=== PATIENT | male | born 1960 | race African-American/Black ===

== ENCOUNTER → 2021-04-03 12:35 | Outpatient (CLI) | payer MEDICARE, OTHER, SELFPAY ==
[2021-04-03 14:26] LABS: COVID19 -Nasal RAPID Negative (Negative)
== END ==
PROVIDERS: Family Provider Emergency Medicine Emergency Medical Services; PCP Emergency Medicine Emergency Medical Services; Visit Provider Nurse Practitioner Family
DX: Z20.822 Contact with and (suspected) exposure to COVID-19 (principal)
CPT/HCPCS: 87635

== ENCOUNTER 2023-07-09 14:45 | Emergency (ER) | payer MEDICARE, OTHER, SELFPAY ==
[2023-07-09] VITALS (8 sets, daily range): BP systolic 136–169; BP diastolic 66–87; PULSE 47–66; RESP 16; TEMP 36.3; O2SAT 94–100; BMI 34.2
--- NOTE | 2023-07-09 15:15 | ED.GENADULT ---
HPI - General Adult General Chief complaint: Extremity Problem,Nontraumatic Stated complaint: Right lower leg and foot Time Seen by Provider: 07/09/23 15:15 Source: patient Mode of arrival: Ambulatory History of Present Illness HPI narrative: 63-year-old [facility] with a history of hypertension, depression, peripheral neuropathy who presents with right leg edema. Apparently he had some type of wound to the anterior portion of the right leg in 1997 that has never completely healed and he tends to injure the right anterior cosme and have more infections. He did just that a couple of weeks ago has recently completed a course of antibiotics and is concerned that the leg is still swollen. He has not having any fevers, redness, warmth, skin discoloration. There is a small 1 cm nicely healing wound that does not appear to be infected and is not draining. The right leg is slightly more swollen than the left. He has multiple complaints all of which are very similar to his chronic peripheral neuropathy issues. They talked [facility] on [facility] who suggested he come in for further evaluation. Related Data Home Medications Medication Instructions Recorded Confirmed Sildenafil Citrate (Viagra) 100 mg PO PRN ##0 09/21/08 04/03/21 amlodipine 2.5 mg tablet 2.5 mg PO DAILY 12/06/20 04/03/21 fluoxetine 20 mg capsule (Prozac) 60 mg PO DAILY 12/06/20 04/03/21 gabapentin 300 mg capsule 600 mg PO DAILY 12/06/20 04/03/21 Previous Rx's Medication Instructions Recorded methocarbamol 500 mg tablet See Rx Instructions PO Q6-8H PRN 12/06/20 muscle spasm #30 tabs Allergies Allergy/AdvReac Type Severity Reaction Status Date / Time Sulfa (Sulfonamide Allergy Unknown Verified 07/09/23 14:50 Antibiotics) [SULFA (SULFONAMIDE ANTIBIOTICS)] Review of Systems Review of Systems Narrative: Pertinent positive and negative findings as per HPI Patient History Medical History (Updated 07/09/23 @ 16:49 by Angela Keene MD) Hypertension Social History Smoking Status: Never smoker Smoking Status: Never smoker Substance Use Type: marijuana Exam Initial Vital Signs Initial Vital Signs: Vital Signs Temperature 97.4 F L 07/09/23 14:50 Pulse Rate 59 L 05/20/24 14:50 Respiratory Rate 16 07/09/23 14:50 Blood Pressure 140/66 07/09/23 14:50 Pulse Oximetry 99 07/09/23 14:50 Oxygen Delivery Method Room Air 07/09/23 14:50 General: Alert appropriate in no acute distress Respiratory: Able to speak in full sentences, no obvious respiratory distress Skin: No obvious rashes, warm and dry Neurologic: Grossly intact no obvious asymmetries or abnormalities Psych: appropriate insight and affect, cooperative Extremity: Right lower extremity is slightly more swollen than the left. No warmth or erythema to suggest infection. Has a keloid on the anterior cosme right side. No inguinal adenopathy Course Orders Ordered: ED Orders 07/09/23 16:00 US periph venous low extrem rt Stat Vital Signs Vital signs: Vital Signs - 8 hr 07/09/23 14:50 07/09/23 14:59 07/09/23 14:59 Temperature 97.4 F L Pulse Rate 59 L 66 Respiratory Rate 16 Blood Pressure 140/66 148/71 H Pulse Oximetry 99 99 Oxygen Delivery Method Room Air 07/09/23 15:00 Temperature Pulse Rate 61 Respiratory Rate Blood Pressure Pulse Oximetry 99 Oxygen Delivery Method Room Air Medical Decision Making MDM Narrative Medical decision making narrative: CC: Right leg more swollen in the left after completing antibiotics for right lower extremity cellulitis Complicating co-morbidities: Chronic lower extremity edema, right leg with chronic wound healing issues, peripheral neuropathy, hypertension Data collected from: patient Social determinants of health that may influence the patients condition: [facility] Differential considered: Chronic edema, DVT, doubt underlying infection given benign clinical exam Exam documented above, pertinent findings include: Right lower extremity slightly more swollen. Keloid on the right cosme. Small nicely healing noninfected wound just lateral to the keloid. No inguinal adenopathy complains of tenderness in the calf and along the medial aspect of the calf Imaging studies independently reviewed: Preliminary port for vascular ultrasound indicates no evidence of DVT Discussion: 63-year-old gentleman concerned that his right leg is still swollen after completing a course of antibiotics. DVT is ruled out. Clinically there was no sign of continued infection, deeper abscess or other concerns. I suspect he simply has some disrupted lymphatic flow on the right leg. We talked about using compression socks as well as elevation to help with comfort. Questions were answered he is safe for discharge Discharge Plan Departure Patient Disposition: Home Clinical Impression: Edema of right lower extremity Instructions: DI for Peripheral Edema-Unilateral Activity Restrictions/Additional Instructions: Thank you for coming in today There was no evidence of a blood clot in your right leg. On clinical exam, there is no excessive warmth, redness, drainage or fluctuance to suggest infection. I believe the antibiotics you have completed did exactly what they were supposed to do. Sometimes when there is some underlying injury to the leg itself either with venous flow or lymphatic flow, it will take longer for the swelling to go down. Keeping the foot elevated helps, I would strongly recommend compression socks, the compression socks for runners are frequently much more comfortable, compressive and stylish ;) If you find that you are getting worse or develop any new symptoms, please feel free to return to the emergency department for further evaluation. Prescriptions: No Action amlodipine 2.5 mg tablet 2.5 mg PO DAILY fluoxetine [Prozac] 20 mg capsule 60 mg PO DAILY gabapentin 300 mg capsule 600 mg PO DAILY methocarbamol 500 mg tablet See Rx Instructions PO Q6-8H PRN (Reason: muscle spasm) Qty: 30 0RF Rx Instructions: 1-2 tablets PO every 6-8 hours PRN; Sildenafil Citrate (Viagra) 100 mg PO PRN Qty: 0 Referrals: Ismael Burnette MD [Primary Care Provider] - Stand Alone Forms: Patient Portal/API
--- NOTE | 2023-07-09 16:00 | DI.US.S_ITS ---
PROCEDURE: US PERIPH VENOUS LOW EXTREM RT INDICATIONS: asymetric edema TECHNIQUE: Real-time imaging, as well as color and pulse Doppler interrogation, were performed of the lower extremity deep veins from the inguinal ligament to the popliteal fossa, with documentation of the visualized calf veins. COMPARISON: None. FINDINGS: The common femoral, femoral, popliteal, and the visualized calf veins are normally compressible, and free of intraluminal thrombus. Color and pulse Doppler demonstrate normal phasic intraluminal flow. There is normal augmentation response to distal compression maneuver. IMPRESSION: No findings of lower extremity deep venous thrombosis. Dictated by: Akilah Diamond M.D. on 07/09/2023 at 17:16 Approved by: Akilah Diamond M.D. on 07/09/2023 at 17:16
== END 2023-07-09 16:51 | disposition home or self-care (01) ==
PROVIDERS: Emergency Provider Emergency Medicine; Family Provider Emergency Medicine Emergency Medical Services; PCP Emergency Medicine Emergency Medical Services
DX: R60.0 Localized edema (principal)
CPT/HCPCS: 93971; 99281; 99282

== ENCOUNTER 2023-11-06 11:58 | Emergency (ER) | payer MEDICARE, OTHER, SELFPAY ==
[2023-11-06 12:00] VITALS: BP 127/75; PULSE 78; RESP 16; TEMP 37.1; O2SAT 99; BMI 35.6
--- NOTE | 2023-11-06 12:13 | DI.RAD.S_ITS ---
PROCEDURE: XR KNEE LT 3V INDICATIONS: pain/popping TECHNIQUE: 3 views of the knee were acquired. COMPARISON: None. 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 Anterior-superior and anterior inferior enthesophyte calcifications at the attachments of the quadriceps tendon and patellar ligament Mild degenerative changes of the left knee in the medial lateral and patellofemoral compartments. No radiographic evidence of acute fracture, dislocation, knee joint effusion or high attenuation soft tissue foreign body. If symptoms persist or worsen, MRI could be performed. Dictated by: Monroe Parada M.D. on 11/06/2023 at 12:47 Approved by: Monroe Parada M.D. on 11/06/2023 at 13:05
--- NOTE | 2023-11-06 13:42 | DI.US.S_ITS ---
PROCEDURE: US PERIP VENOUS LOW EXTREM RT INDICATIONS: Lower leg swelling, erythema TECHNIQUE: Real-time imaging, as well as color and pulse Doppler interrogation, were performed of the lower extremity deep veins from the inguinal ligament to the popliteal fossa, with documentation of the visualized calf veins. COMPARISON: [facility], , [facility] VENOUS LOW EXTREM RT, 07/09/2023, 16:17. FINDINGS: The common femoral, femoral, popliteal, and the visualized calf veins are normally compressible, and free of intraluminal thrombus. Color and pulse Doppler demonstrate normal phasic intraluminal flow. There is normal augmentation response to distal compression maneuver. IMPRESSION: No DVT in visualized right lower extremity veins. Dictated by: Javi Garrett M.D. on 11/06/2023 at 14:48 Approved by: Javi Garrett M.D. on 11/06/2023 at 14:48
--- NOTE | 2023-11-06 16:53 | ED.SKABFB ---
HPI - Skin/Abscess/Foreign Bdy <Daniele Epperson PA-C - Last Filed: 11/06/23 17:06> General Chief complaint: Skin/Abscess/Foreign Body Stated complaint: cellulitis both legs Time Seen by Provider: 11/06/23 13:13 Source: patient Mode of arrival: Ambulatory Limitations: no limitations History of Present Illness HPI narrative: 63-year-old male with past medical history hypertension, depression, peripheral neuropathy presents to the ED with 1 month of right lower leg pain, swelling, redness. Patient states that he bumped his right cosme a month ago, had a small wound which healed normally, however since then patient has had redness, swelling, pain in the right lower leg. Patient has been seen by his PCP, treated with cephalexin for cellulitis without much improvement. Patient denies fever, chills, chest pain, shortness of breath. No nausea, vomiting. Patient also complains of left-sided knee pain with no associated trauma. No numbness, tingling, weakness in bilateral lower extremities. Gait is normal. Related Data Home Medications Medication Instructions Recorded Confirmed Sildenafil Citrate (Viagra) 100 mg PO PRN ##0 09/21/08 04/03/21 amlodipine 2.5 mg tablet 2.5 mg PO DAILY 12/06/20 04/03/21 fluoxetine 20 mg capsule (Prozac) 60 mg PO DAILY 12/06/20 04/03/21 gabapentin 300 mg capsule 600 mg PO DAILY 12/06/20 04/03/21 Previous Rx's Medication Instructions Recorded methocarbamol 500 mg tablet See Rx Instructions PO Q6-8H PRN 12/06/20 muscle spasm #30 tabs clindamycin HCl 150 mg capsule 450 mg (3 x 150 mg) PO TID 7 days 11/06/23 #63 caps Allergies Allergy/AdvReac Type Severity Reaction Status Date / Time Sulfa (Sulfonamide Allergy Unknown Verified 07/09/23 14:50 Antibiotics) [SULFA (SULFONAMIDE ANTIBIOTICS)] Review of Systems <Daniele Epperson PA-C - Last Filed: 11/06/23 17:06> Constitutional Constitutional: Denies chills, Denies fatigue, Denies fever(s), Denies frequent falls, Denies lethargy and Denies weakness Eyes Eyes: Denies change in vision, Denies eye discharge, Denies irritation and Denies loss of vision ENT Ears, Nose, Mouth, and Throat: Denies change in voice, Denies dizziness, Denies neck pain, Denies sore throat and Denies throat swelling Cardiovascular Cardiovascular: Denies chest pain, Denies irregular heart rhythm, Denies lightheadedness, Denies palpitations, Denies dyspnea, Denies dyspnea on exertion and Denies orthopnea Respiratory Respiratory: Denies cough, Denies dyspnea, Denies dyspnea on exertion and Denies wheezing Gastrointestinal Gastrointestinal: Denies abdominal pain, Denies change in bowel habits, Denies diarrhea, Denies nausea and Denies vomiting Musculoskeletal Musculoskeletal: Denies neck pain and Denies numbness Comments: Left knee pain. Right lower leg swelling, redness, pain. Integumentary/Breasts Skin/Breast: Denies pruritus, Denies erythema, Denies rash and Denies wounds Neurologic Neurologic: Denies behavioral changes, Denies confusion, Denies dizziness, Denies frequent falls, Denies loss of vision, Denies numbness and Denies weakness Psychiatric Psychiatric: Denies anxiety, Denies behavioral changes, Denies confusion, Denies depression, Denies homicidal ideation and Denies suicidal ideation Endocrine Endocrine: Denies fatigue, Denies flushing and Denies palpitations Hematologic/Lymphatic Hematologic/Lymphatic: Denies easy bruising Allergic/Immunologic Allergic/Immunologic: Denies urticaria, Denies throat swelling and Denies wheezing Patient History <Daniele Epperson PA-C - Last Filed: 11/06/23 17:06> Medical History Hypertension Social History Smoking Status: Never smoker Smoking Status: Never smoker Substance Use Type: marijuana Exam <Daniele Epperson PA-C - Last Filed: 11/06/23 17:06> Narrative Exam Narrative: Const General:?cooperative, healthy appearing and comfortable [facility] Head:?normal to inspection Ears:?hearing grossly normal bilaterally Nose:?external nose normal Face and sinus:?normal facial exam and sinuses nontender Mouth:?oral mucosae normal Throat:?posterior oropharynx normal Eyes General:?appearance normal, both eyes and all related structures Neck Neck:?normal visual inspection and no lymphadenopathy noted Resp Effort & Inspection:?normal respiratory effort Auscultation:?clear to auscultation bilaterally Cardio Rate:?regular rate Rhythm:?regular rhythm Integumentary/musculoskeletal There is some erythema, swelling to the right lower leg. No wounds noted. Full range of motion. Strength and sensation intact. Pedal pulses intact. Compartments soft. Neurovascularly intact. Patient able to bear weight and walk normally. Left leg normal on exam. Neuro General:?patient alert, patient awake and patient oriented x3 Initial Vital Signs Initial Vital Signs: Vital Signs Temperature 98.8 F 11/06/23 12:00 Pulse Rate 78 11/06/23 12:00 Respiratory Rate 16 11/06/23 12:00 Blood Pressure 127/75 11/06/23 12:00 Pulse Oximetry 99 11/06/23 12:00 Oxygen Delivery Method Room Air 11/06/23 12:00 <Radha Perdue DO - Last Filed: 11/07/23 07:45> Initial Vital Signs Initial Vital Signs: Vital Signs Temperature 98.8 F 11/06/23 12:00 Pulse Rate 78 11/06/23 12:00 Respiratory Rate 16 11/06/23 12:00 Blood Pressure 127/75 11/06/23 12:00 Pulse Oximetry 99 11/06/23 12:00 Oxygen Delivery Method Room Air 11/06/23 12:00 Course <RACHEL Boucher Last Filed: 11/06/23 17:06> Orders Ordered: ED Orders 11/06/23 12:13 XR knee LT 3V Stat 11/06/23 13:42 US periph venous low extrem rt Stat Vital Signs Vital signs: Vital Signs - 8 hr 11/06/23 12:00 Temperature 98.8 F Pulse Rate 78 Respiratory Rate 16 Blood Pressure 127/75 Pulse Oximetry 99 Oxygen Delivery Method Room Air <DO Jaimie Nichole Last Filed: 11/07/23 07:45> Orders Ordered: ED Orders 11/06/23 12:13 XR knee LT 3V Stat 11/06/23 13:42 US periph venous low extrem rt Stat Vital Signs Vital signs: Vital Signs - 8 hr 11/06/23 12:00 Temperature 98.8 F Pulse Rate 78 Respiratory Rate 16 Blood Pressure 127/75 Pulse Oximetry 99 Oxygen Delivery Method Room Air MDM - Skin/Abscess/Foreign Bdy <RACHEL Boucher Last Filed: 11/06/23 17:06> MDM Narrative Medical decision making narrative: 63-year-old male with past medical history hypertension, depression, peripheral neuropathy presents to the ED with 1 month of right lower leg pain, swelling, redness. Concern for DVT versus cellulitis versus other. Ultrasound was obtained without evidence of DVTs. Prescribed a different course of antibiotics. Obtained x-ray of the left knee which was without acute findings. Recommend Tylenol, ibuprofen for pain control. Recommend follow-up with PCP. ED return precautions were discussed with patient. Patient verbalized understanding. Medical records reviewed: Yes Discharge Plan Departure Patient Disposition: Home Clinical Impression: Cellulitis Qualifiers: Site of cellulitis: extremity Site of cellulitis of extremity: lower extremity Laterality: right Qualified Code(s): L03.115 - Cellulitis of right lower limb Instructions: DI for Cellulitis -- Adult Activity Restrictions/Additional Instructions: You were evaluated in the ED today for right lower leg swelling and redness. You are being prescribed an antibiotic for cellulitis which is a skin infection. Please take those as prescribed. You may take 600 mg of ibuprofen every 8 hours with food. You may also take 1000 mg of Tylenol 3 every 8 hours. Please follow-up with your PCP as soon as possible for further evaluation. Return to the ED if you have worsening symptoms. Prescriptions: New clindamycin HCl 150 mg capsule 450 mg PO TID 7 Days Qty: 63 0RF No Action amlodipine 2.5 mg tablet 2.5 mg PO DAILY fluoxetine [Prozac] 20 mg capsule 60 mg PO DAILY gabapentin 300 mg capsule 600 mg PO DAILY methocarbamol 500 mg tablet See Rx Instructions PO Q6-8H PRN (Reason: muscle spasm) Qty: 30 0RF Rx Instructions: 1-2 tablets PO every 6-8 hours PRN; Sildenafil Citrate (Viagra) 100 mg PO PRN Qty: 0 Referrals: Ismael Burnette MD [Primary Care Provider] - Stand Alone Forms: Patient Portal/API ED Sign-out <Radha Perdue DO - Last Filed: 11/07/23 07:45> Cosign ED Attending Cosignature Attestation: I was immediately available in the department for consultation.
== END 2023-11-06 15:22 | disposition home or self-care (01) ==
PROVIDERS: Emergency Provider Student in an Organized Health Care Education/Training Program; Family Provider Emergency Medicine Emergency Medical Services; PCP Emergency Medicine Emergency Medical Services
DX: L03.115 Cellulitis of right lower limb (principal)
CPT/HCPCS: 73562; 93971; 99283

== ENCOUNTER 2023-11-17 11:44 | Emergency (ER) | payer MEDICARE, OTHER, SELFPAY ==
[2023-11-17] VITALS (15 sets, daily range): BP systolic 139–181; BP diastolic 69–101; PULSE 65–75; RESP 12–24; TEMP 37.2; O2SAT 97–100; BMI 35.5
--- NOTE | 2023-11-17 12:02 | ED.SKABFB ---
HPI - Skin/Abscess/Foreign Bdy General Chief complaint: Skin/Abscess/Foreign Body Stated complaint: cellulitis in both legs Time Seen by Provider: 11/17/23 12:00 History of Present Illness HPI narrative: Patient 63-year-old male history of hypertension, depression peripheral neuropathy presenting today with ongoing leg swelling and redness. He reports that the left leg is now swollen red painful. He has had some body aches off and on. He has been on a variety of antibiotics over the course of a month. He was seen evaluated here on November 05 where he had a negative DVT ultrasound and given clindamycin. He reports he has historically been put on hydrochlorothiazide as well to help with swelling. He was last seen here in June for right leg cellulitis as well. He reports that he had been on doxycycline Keflex and clindamycin and continues to have swelling and redness. Today his left leg is definitely worse than his right leg where his last week it was the right Related Data Home Medications Medication Instructions Recorded Confirmed Sildenafil Citrate (Viagra) 100 mg PO PRN ##0 09/21/08 04/03/21 amlodipine 2.5 mg tablet 2.5 mg PO DAILY 12/06/20 04/03/21 fluoxetine 20 mg capsule (Prozac) 60 mg PO DAILY 12/06/20 04/03/21 gabapentin 300 mg capsule 600 mg PO DAILY 12/06/20 04/03/21 Previous Rx's Medication Instructions Recorded methocarbamol 500 mg tablet See Rx Instructions PO Q6-8H PRN 12/06/20 muscle spasm #30 tabs cefdinir 300 mg capsule 300 mg PO Q12H #14 caps 11/17/23 Allergies Allergy/AdvReac Type Severity Reaction Status Date / Time Sulfa (Sulfonamide Allergy Unknown Verified 07/09/23 14:50 Antibiotics) [SULFA (SULFONAMIDE ANTIBIOTICS)] Patient History Medical History Hypertension Social History Smoking Status: Never smoker Smoking Status: Never smoker Substance Use Type: marijuana Exam Initial Vital Signs Initial Vital Signs: Vital Signs Temperature 98.9 F 11/17/23 11:48 Pulse Rate 68 11/17/23 11:48 Respiratory Rate 16 11/17/23 11:48 Blood Pressure 180/87 H 11/17/23 11:48 Pulse Oximetry 100 11/17/23 11:48 Oxygen Delivery Method Room Air 11/17/23 11:48 GENERAL: Alert pleasant well-appearing 63-year-old male HEENT: Head atraumatic,EOMI, pupils reactive, face symmetric, moist mucous membranes CARDIOVASCULAR: Regular rate and rhythm without murmurs, rubs or gallops. RESPIRATORY: Breath sounds equal bilaterally, no wheezes rales or rhonchi. ABDOMEN: Soft, nontender. Normoactive bowel sounds all 4 quadrants. No guarding or rebound. EXTREMITIES: Normal range of motion, no clubbing or edema. Neurovascularly intact NEUROLOGICAL: Alert and oriented x4.Normal gait and speech. Cranial nerves II through XII grossly intact. SKIN: W left leg is swollen with erythema medial side up to knee, right leg does not look as red or swollen no significant drainage or wounds Course Orders Ordered: ED Orders 11/17/23 12:12 US periph venous low extrem lt Stat 11/17/23 12:50 BNP [NT-proBNP (BNP-Adult 18+)] Stat CBC Auto Diff [Complete Blood Count AUTO DIFF] Stat CMP [Comprehensive Metabolic Panel] Stat CRP [C-Reactive Protein Quant] Stat Lactate (Lactic Acid) Stat 11/17/23 13:00 Blood Culture Stat Discontinued Medications POTASSIUM CHLORIDE IN WATER (Potassium Cl 10 Meq/100 Ml Ramona) 10 meq in 100 mls @ 100 mls/hr IV Q1H KAIT Stop: 11/17/23 15:29 Last Infusion: 11/17/23 17:11 Dose: Infused Documented By: Admin: 11/17/23 15:50 Dose: 100 mls/hr Documented By: Infusion: 11/17/23 15:50 Dose: Infused Documented By: Admin: 11/17/23 14:21 Dose: 100 mls/hr Documented By: ELIZABETH Ceftriaxone Sodium 1,000 mg/ (Sodium Chloride) 100 mls @ 200 mls/hr IV NOW ONE Stop: 11/17/23 13:33 Last Infusion: 11/17/23 14:20 Dose: Infused Documented By: Admin: 11/17/23 13:41 Dose: 200 mls/hr Documented By: ELIZABETH Ketorolac Tromethamine (Ketorolac 30 Mg/Ml Vial) 30 mg IV NOW ONE Stop: 11/17/23 12:15 Last Admin: 11/17/23 12:49 Dose: 30 mg Documented By: ELIZABETH Potassium Chloride (Potassium Chloride 20 Meq Tab) 40 meq PO NOW ONE Stop: 11/17/23 13:29 Last Admin: 11/17/23 13:42 Dose: 40 meq Documented By: ELIZABETH Vital Signs Vital signs: Vital Signs - 8 hr 11/17/23 11:48 11/17/23 13:47 11/17/23 14:00 Temperature 98.9 F Pulse Rate 68 65 68 Respiratory Rate 16 24 13 Blood Pressure 180/87 H Pulse Oximetry 100 Oxygen Delivery Method Room Air 11/17/23 14:12 11/17/23 14:12 11/17/23 14:30 Temperature Pulse Rate 66 Respiratory Rate 12 Blood Pressure 170/82 H 174/82 H Pulse Oximetry 100 Oxygen Delivery Method 11/17/23 14:30 11/17/23 15:00 11/17/23 15:01 Temperature Pulse Rate 70 65 Respiratory Rate 13 12 Blood Pressure 169/80 H Pulse Oximetry 99 99 Oxygen Delivery Method Room Air 11/17/23 15:01 11/17/23 15:30 11/17/23 15:31 Temperature Pulse Rate 65 75 Respiratory Rate 12 Blood Pressure 139/69 Pulse Oximetry 98 99 Oxygen Delivery Method 11/17/23 15:31 11/17/23 16:00 11/17/23 16:00 Temperature Pulse Rate 75 75 Respiratory Rate Blood Pressure 169/85 H Pulse Oximetry 98 98 Oxygen Delivery Method Room Air 11/17/23 16:27 11/17/23 16:27 11/17/23 16:30 Temperature Pulse Rate 69 66 Respiratory Rate Blood Pressure 181/101 H Pulse Oximetry 97 100 Oxygen Delivery Method 11/17/23 16:31 11/17/23 16:31 11/17/23 17:00 Temperature Pulse Rate 67 75 Respiratory Rate Blood Pressure 162/80 H Pulse Oximetry 99 98 Oxygen Delivery Method Room Air 11/17/23 17:01 11/17/23 17:01 Temperature Pulse Rate 74 Respiratory Rate Blood Pressure 170/86 H Pulse Oximetry 98 Oxygen Delivery Method Room Air MDM - Skin/Abscess/Foreign Bdy Lab Data 11/17/23 12:50 11/17/23 12:50 Labs: Lab Results 11/17/23 Range/Units 12:50 WBC 7.7 (4.5-11.0) X10^3/uL RBC 4.73 (4.5-5.9) X10^6/uL Hgb 13.4 L (13.5-17.5) g/dL Hct 41.2 (41-53) % MCV 87.0 (80-100) fL MCH 28.2 (26-34) PG MCHC 32.4 (30-36) % RDW 14.3 (11.6-14.8) % Plt Count 271 (150-400) X10^3/uL Neut % (Auto) 72.4 (50-75) % Lymph % (Auto) 16.4 L (25-40) % [place] % (Auto) 8.7 (3-14) % Eos % (Auto) 1.9 L (2-4) % Baso % (Auto) 0.6 (0-2) % Neut # (Auto) 5600 (1353-4233) /uL Lymph # (Auto) 1300 (7719-5216) /uL [place] # (Auto) 700 (0-900) /uL Eos # (Auto) 100 (0-450) /uL Baso # (Auto) 0 (0-100) /uL Sodium 139 (137-145) mmol/L Potassium 2.7 L* (3.4-5.1) mmol/L Chloride 99 (98-107) mmol/L Carbon Dioxide 35 H (22-32) mmol/L BUN 11 (9-20) mg/dL Creatinine 0.94 (0.66-1.25) mg/dL Estimated GFR > 60 (>60) mL/min BUN/Creatinine Ratio 11.7 (6-22) Glucose 112 H (80-110) mg/dL Lactate 1.5 (0.7-2.1) mmol/L Calcium 8.6 (8.4-10.2) mg/dL Total Bilirubin 0.6 (0.2-1.3) mg/dL AST 35 (17-59) IU/L ALT 31 (<50) IU/L Alkaline Phosphatase 89 (38-126) U/L C-Reactive Protein 2.0 H (<1.0) mg/dL NT-Pro-B Natriuret Pep < 20 (<125) pg/mL Total Protein 7.4 (6.3-8.2) g/dL Albumin 4.0 (3.5-5.0) g/dL Globulin 3.4 (1.7-4.1) g/dL Albumin/Globulin Ratio 1.2 (1.0-2.8) Imaging Data US - DVT: Radiologist's Impression: PROCEDURE: US PERIPH VENOUS LOW EXTREM LT INDICATIONS: swelling TECHNIQUE: Real-time imaging, as well as color and pulse Doppler interrogation, were performed of the lower extremity deep veins from the inguinal ligament to the popliteal fossa, with documentation of the visualized calf veins. COMPARISON: None. FINDINGS: The common femoral, femoral, popliteal, and the visualized calf veins are normally compressible, and free of intraluminal thrombus. Color and pulse Doppler demonstrate normal phasic intraluminal flow. There is normal augmentation response to distal compression maneuver. IMPRESSION: No findings of lower extremity deep venous thrombosis. Dictated by: Ethan Reis M.D. on 11/17/2023 at 13:29 [facility] Narrative Medical decision making narrative: [facility] CC: Left leg swelling and redness Complicating co-morbidities: Currently on clindamycin has had this issue previously hypertension Medical records reviewed: Previous ED records Differential considered: Cellulitis DVT peripheral edema Exam documented above, pertinent findings include: Left leg is more swollen and red than the right he does have some erythema medially no significant wounds or lacerations Lab Test results independently reviewed as above. Pertinent findings: CBC no leukocytosis WBC is 7.7 no anemia hemoglobin 13.4/41.2 CMP shows hypokalemia with a potassium of 2.7, sodium is 139, other electrolytes stable creatinine 0.91 glucose 112 CRP 2, lactic acid 1.5 Troponin negative BNP less than 20 Independently reviewed EKG as above Imaging studies independently reviewed: Negative for DVT Treatments: IV potassium 20 mEq p.o. 40 IV Rocephin Re-evaluations: Patient remains comfortable updated him on Discussion: Patient is 63-year-old male presenting today with left leg swelling and erythema. He has been off and on antibiotics for at least a month. he was prescribed Keflex at the end of September and then clindamycin 10 days ago. His right leg has improved but his left leg is quite swollen and erythematous. Blood work is overall reassuring he has no signs of severe sepsis he has no leukocytosis vitals are stable and lactic acid is within normal limits. He does have a mildly elevated CRP which I suspect is from infection. Ultrasound out DVT. He is found to be hypokalemic with a potassium of 2.7 he reports being on hydrochlorothiazide so I suspect this is from medication. He also says that he is already on potassium but I do not actually see or know how much and neither does he. He is given 20 mEq through the IV and 40 p.o. I recommend that he increase his potassium and have outpatient blood work rechecked. Discharge Plan Departure Patient Disposition: Home Clinical Impression: Cellulitis, Acute hypokalemia Instructions: DI for Cellulitis -- Adult Activity Restrictions/Additional Instructions: *You have been diagnosed with cellulitis and low potassium *What to do: Has a same we will put you on a stronger antibiotic hopefully it helps. Your potassium was noted to be low today please have your blood work rechecked next week with your primary care provider *Continue to take medications as directed Cefdinir 300 mg twice a day for 7 days Potassium chloride 20 mEq daily *Follow up with your primary care provider in 2-3 days or call [phone] *Return to ER if you should have increasing redness pain or any new, worsening or concerning symptoms Prescriptions: New cefdinir 300 mg capsule 300 mg PO Q12H Qty: 14 0RF No Action amlodipine 2.5 mg tablet 2.5 mg PO DAILY fluoxetine [Prozac] 20 mg capsule 60 mg PO DAILY gabapentin 300 mg capsule 600 mg PO DAILY methocarbamol 500 mg tablet See Rx Instructions PO Q6-8H PRN (Reason: muscle spasm) Qty: 30 0RF Rx Instructions: 1-2 tablets PO every 6-8 hours PRN; Sildenafil Citrate (Viagra) 100 mg PO PRN Qty: 0 Referrals: Ismael Burnette MD [Primary Care Provider] - Stand Alone Forms: Patient Portal/API
--- NOTE | 2023-11-17 12:12 | DI.US.S_ITS ---
PROCEDURE: US PERIPH VENOUS LOW EXTREM LT INDICATIONS: swelling TECHNIQUE: Real-time imaging, as well as color and pulse Doppler interrogation, were performed of the lower extremity deep veins from the inguinal ligament to the popliteal fossa, with documentation of the visualized calf veins. COMPARISON: None. FINDINGS: The common femoral, femoral, popliteal, and the visualized calf veins are normally compressible, and free of intraluminal thrombus. Color and pulse Doppler demonstrate normal phasic intraluminal flow. There is normal augmentation response to distal compression maneuver. IMPRESSION: No findings of lower extremity deep venous thrombosis. Dictated by: Ethan Reis M.D. on 11/17/2023 at 13:29 Approved by: Ethan Reis M.D. on 11/17/2023 at 13:29
[2023-11-17] MEDS: KETOROLAC 30 MG/ML VIAL IV (12:49)
[2023-11-17 13:12] LABS: Add Manual Diff / Slide Review NO; Basophils Absolute Auto 0 /uL (0-100); Basophils Percent Auto 0.6 % (0-2); Eosinophils Absolute Auto 100 /uL (0-450); Eosinophils Percent Auto 1.9 % (2-4); Hematocrit 41.2 % (41-53); Hemoglobin 13.4 g/dL (13.5-17.5); Lymphocytes Absolute Auto 1300 /uL (1100-4500); Lymphocytes Percent Auto 16.4 % (25-40); Mean Corpuscular HGB Conc 32.4 % (30-36); Mean Corpuscular Hemoglobin 28.2 PG (26-34); Monocytes Absolute Auto 700 /uL (0-900); Monocytes Percent Auto 8.7 % (3-14); Neutrophils Absolute Auto 5600 /uL (1500-7000); Neutrophils Percent Auto 72.4 % (50-75); Platelet Count 271 X10^3/uL (150-400); Red Blood Cell Count 4.73 X10^6/uL (4.5-5.9); Red Cell Distribution Width 14.3 % (11.6-14.8); White Blood Cell Count 7.7 X10^3/uL (4.5-11.0)
[2023-11-17 13:19] LABS: Lactate (Lactic Acid) 1.5 mmol/L (0.7-2.1)
[2023-11-17 13:21] LABS: Alanine Aminotransferase 31 IU/L (<50); Albumin Globulin Ratio 1.2 (1.0-2.8); Alkaline Phosphatase 89 U/L (38-126); Aspartate Aminotransferase 35 IU/L (17-59); BUN Creatinine Ratio 11.7 (6-22); Bilirubin Total 0.6 mg/dL (0.2-1.3); Blood Urea Nitrogen 11 mg/dL (9-20); Calcium 8.6 mg/dL (8.4-10.2); Carbon Dioxide 35 mmol/L (22-32); Chloride 99 mmol/L (98-107); Estimated Glomerular Filt Rate > 60 mL/min (>60); Globulin 3.4 g/dL (1.7-4.1); Glucose 112 mg/dL (80-110); HEMOLYSIS 40 (0-50); Sodium 139 mmol/L (137-145); Total Protein 7.4 g/dL (6.3-8.2)
[2023-11-17 13:27] LABS: NT-proBNP (BNP-Adult 18+) < 20 pg/mL (<125)
[2023-11-17 13:28] LABS: Potassium 2.7 mmol/L (3.4-5.1)
[2023-11-17] MEDS: cefTRIAXone 1,000 MG in SODIUM CHLORIDE 0.9% 100 ML 200 MG IV (13:41)
[2023-11-17] MEDS: POTASSIUM CHLORIDE 20 MEQ TAB 40 MEQ PO (13:42)
[2023-11-17] MEDS: POTASSIUM CHLORIDE IN WATER 10 MEQ/100 ML PIGGYBACK 100 MEQ IV ×2 (14:21→15:50)
== END 2023-11-17 17:24 | disposition home or self-care (01) ==
PROVIDERS: Emergency Provider Emergency Medicine; Family Provider Emergency Medicine Emergency Medical Services; PCP Emergency Medicine Emergency Medical Services
DX: L03.116 Cellulitis of left lower limb (principal); L03.115 Cellulitis of right lower limb; E87.6 Hypokalemia
CPT/HCPCS: 36415; 80053; 83605; 83880; 85025; 86140; 87040; 93971; 96365; 96366; 96367; 96375; 99284; J0696; J1885

== ENCOUNTER 2024-06-23 14:13 | Emergency (ER) | payer MEDICARE, OTHER, SELFPAY ==
[2024-06-23] VITALS (12 sets, daily range): BP systolic 166–207; BP diastolic 89–123; PULSE 68–94; RESP 16–20; TEMP 36.1; O2SAT 90–99; BMI 33.9
--- NOTE | 2024-06-23 14:34 | DI.RAD.S_ITS ---
PROCEDURE: XR CHEST 1V INDICATIONS: Chest Pain TECHNIQUE: One view of the chest was acquired. COMPARISON: None. FINDINGS: Surgical changes and devices: None. Lungs and pleura: Mild pulmonary vascular congestion. No pleural effusions or pneumothorax. Mediastinum: Mediastinal contours appear normal. Heart size is normal. Bones and chest wall: No suspicious bony lesions. Overlying soft tissues appear unremarkable. IMPRESSION: Mild congestion. No definite focal infiltrate. No pleural effusion or pneumothorax. Dictated by: Javi Garrett M.D. on 06/23/2024 at 16:13 Approved by: Javi Garrett M.D. on 06/23/2024 at 16:14
--- NOTE | 2024-06-23 14:40 | EKG_ITS ---
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
[2024-06-23 14:56] LABS: Add Manual Diff / Slide Review NO; Basophils Absolute Auto 100 /uL (0-100); Basophils Percent Auto 0.7 % (0-2); Eosinophils Absolute Auto 200 /uL (0-450); Eosinophils Percent Auto 2.8 % (2-4); Hematocrit 42.8 % (41-53); Hemoglobin 14.3 g/dL (13.5-17.5); Lymphocytes Absolute Auto 1700 /uL (1100-4500); Lymphocytes Percent Auto 18.9 % (25-40); Mean Corpuscular HGB Conc 33.5 % (30-36); Mean Corpuscular Hemoglobin 28.9 PG (26-34); Mean Corpuscular Volume 86.5 fL (80-100); Monocytes Absolute Auto 500 /uL (0-900); Monocytes Percent Auto 6.1 % (3-14); Neutrophils Absolute Auto 6400 /uL (1500-7000); Neutrophils Percent Auto 71.5 % (50-75); Platelet Count 272 X10^3/uL (150-400); Red Blood Cell Count 4.95 X10^6/uL (4.5-5.9); Red Cell Distribution Width 14.7 % (11.6-14.8)
[2024-06-23 15:03] LABS: Prothrombin Time 11.3 SECONDS (9.4-12.5)
[2024-06-23 15:05] LABS: PTT Partial Thromboplastin Tim 40 SECONDS (25.1-36.5)
[2024-06-23 15:08] LABS: Lactate (Lactic Acid) 1.4 mmol/L (0.7-2.1)
[2024-06-23 15:09] LABS: Alanine Aminotransferase 30 IU/L (<50); Albumin 4.5 g/dL (3.5-5.0); Albumin Globulin Ratio 1.3 (1.0-2.8); Alkaline Phosphatase 113 U/L (38-126); Aspartate Aminotransferase 35 IU/L (17-59); BUN Creatinine Ratio 8.9 (6-22); Bilirubin Total 0.7 mg/dL (0.2-1.3); Blood Urea Nitrogen 8 mg/dL (9-20); Carbon Dioxide 29 mmol/L (22-32); Chloride 101 mmol/L (98-107); Creatine Kinase 322 U/L (55-170); Estimated Glomerular Filt Rate > 60 mL/min (>60); Globulin 3.4 g/dL (1.7-4.1); Glucose 130 mg/dL (70-99); HEMOLYSIS < 15 (0-50); Lipase 375 U/L (23-300); Magnesium 1.9 mg/dL (1.6-2.3); Potassium 3.3 mmol/L (3.4-5.1); Sodium 139 mmol/L (137-145); Total Protein 7.9 g/dL (6.3-8.2)
[2024-06-23 15:20] LABS: NT-proBNP (BNP-Adult 18+) < 20 pg/mL (<125); Troponin I < 0.012 ng/mL (0.01-0.034)
--- NOTE | 2024-06-23 19:33 | ED_ITS ---
HPI - General Adult General Chief complaint: Hypertension Stated complaint: High blood pressure L shoulder pain took Fentanyl Time Seen by Provider: 06/23/24 19:33 Source: patient Mode of arrival: Ambulatory History of Present Illness HPI narrative: 64-year-old gentleman history of hypertension on amlodipine hydrochlorothiazide and hydralazine smoked a joint last night of fentanyl 150 mcg apparently was checking into detox earlier today when they noticed his blood pressure was 216/160 and he had some left shoulder neck discomfort. He was then brought here for further evaluation. Patient denies any headache dizziness blurred vision CVA TIA or any history of CAD. Patient denies any weakness trouble speaking difficulty swallowing or hearing loss. He did not take his amlodipine hydrochlorothiazide or hydralazine today. He is currently asymptomatic. Other than what is stated 14 point review of system is negative. Related Data Home Medications Medication Instructions Recorded Confirmed Sildenafil Citrate (Viagra) 100 mg PO PRN ##0 09/21/08 01/02/24 amlodipine 2.5 mg tablet 2.5 mg PO DAILY 12/06/20 01/02/24 fluoxetine 20 mg capsule (Prozac) 60 mg PO DAILY 12/06/20 01/02/24 gabapentin 300 mg capsule 600 mg PO DAILY 12/06/20 01/02/24 Previous Rx's Medication Instructions Recorded methocarbamol 500 mg tablet See Rx Instructions PO Q6-8H PRN 12/06/20 muscle spasm #30 tabs cefdinir 300 mg capsule 300 mg PO Q12H #14 caps 11/17/23 Allergies Allergy/AdvReac Type Severity Reaction Status Date / Time Sulfa (Sulfonamide Allergy Unknown Verified 06/23/24 14:28 Antibiotics) [SULFA (SULFONAMIDE ANTIBIOTICS)] Review of Systems Review of Systems ROS Unobtainable: All systems reviewed & are unremarkable except as noted in HPI and below Patient History Medical History Hypertension Social History Smoking Status: Current every day smoker Smoking Status: Current every day smoker Exam Narrative Exam Narrative: GENERAL: [64] year old patient appears stated age. Well-developed patient, in mild distress. HEAD: Atraumatic. Normocephalic. EYES: Pupils equal round and reactive. Extraocular motions intact. No scleral icterus. No injection or drainage. NECK: Trachea midline. Non tender CARDIOVASCULAR: Regular rate and rhythm without murmurs, gallops, or rubs. RESPIRATORY: Clear to auscultation. Breath sounds equal bilaterally. No wheezes, rales, or rhonchi. GASTROINTESTINAL: Abdomen soft, non-tender, nondistended. EXTREMITIES: No edema or joint tenderness. BACK: Nontender without deformity or crepitance. No flank tenderness. NEURO: AOx3. GCS of 15 nonfocal neuro exam bilateral upper and lower extremity 5/5 SKIN: No rash or erythema of visible areas Initial Vital Signs Initial Vital Signs: Vital Signs Temperature 97.0 F L 06/23/24 14:28 Pulse Rate 89 06/23/24 14:28 Respiratory Rate 17 06/23/24 14:28 Blood Pressure 181/97 H 06/23/24 14:28 Pulse Oximetry 98 06/23/24 14:28 Oxygen Delivery Method Room Air 06/23/24 14:28 Scores HEART Score Heart Score history: Slightly Suspicious Heart Score EKG: Normal Heart Score Age: > or = 65 years old Heart Score risk factors: 1-2 risk factors Heart Score troponin: < or = to normal limit Heart Score Total: 3 Course Orders Ordered: ED Orders 06/23/24 14:34 XR chest 1V Stat EKG-12 Lead Stat 06/23/24 14:46 Complete Blood Count AUTO DIFF Stat Comprehensive Metabolic Panel Stat Lactate (Lactic Acid) Stat Lipase Stat Magnesium Stat NT-proBNP (BNP-Adult 18+) Stat PTT Partial Thromboplastin Je Stat Prothrombin Time INR Stat Troponin & CK Cardiac Panel Stat 06/23/24 20:17 Troponin I Stat Discontinued Medications Amlodipine Besylate (Amlodipine 5 Mg Tablet) 10 mg PO NOW ONE Stop: 06/23/24 19:45 Last Admin: 06/23/24 19:50 Dose: 10 mg Documented By: RIO Aspirin (Aspirin 81 Mg Chew Tab) 324 mg PO NOW ONE Stop: 06/23/24 14:35 Potassium Chloride (Potassium Chloride 20 Meq Tab) 40 meq PO NOW ONE Stop: 06/23/24 19:44 Last Admin: 06/23/24 19:50 Dose: 40 meq Documented By: RIO Vital Signs Vital signs: Vital Signs - 8 hr 06/23/24 14:28 06/23/24 15:47 06/23/24 17:53 Temperature 97.0 F L Pulse Rate 89 94 H 85 Respiratory Rate 17 16 16 Blood Pressure 181/97 H 180/94 H 178/96 H Pulse Oximetry 98 99 97 Oxygen Delivery Method Room Air Room Air Room Air 06/23/24 18:28 06/23/24 18:30 06/23/24 18:30 Temperature Pulse Rate 84 80 Respiratory Rate Blood Pressure 207/123 H Pulse Oximetry 96 98 Oxygen Delivery Method Medical Decision Making Lab Data 06/23/24 14:46 06/23/24 14:46 Labs: Lab Results 06/23/24 06/23/24 Range/Units 14:46 20:17 WBC 9.0 (4.5-11.0) X10^3/uL RBC 4.95 (4.5-5.9) X10^6/uL Hgb 14.3 (13.5-17.5) g/dL Hct 42.8 (41-53) % MCV 86.5 (80-100) fL MCH 28.9 (26-34) PG MCHC 33.5 (30-36) % RDW 14.7 (11.6-14.8) % Plt Count 272 (150-400) X10^3/uL Neut % (Auto) 71.5 (50-75) % Lymph % (Auto) 18.9 L (25-40) % [place] % (Auto) 6.1 (3-14) % Eos % (Auto) 2.8 (2-4) % Baso % (Auto) 0.7 (0-2) % Neut # (Auto) 6400 (5508-0604) /uL Lymph # (Auto) 1700 (3848-8769) /uL [place] # (Auto) 500 (0-900) /uL Eos # (Auto) 200 (0-450) /uL Baso # (Auto) 100 (0-100) /uL PT 11.3 (9.4-12.5) SECONDS INR 1.0 (0.9-1.3) APTT 40 H (25.1-36.5) SECONDS Sodium 139 (137-145) mmol/L Potassium 3.3 L (3.4-5.1) mmol/L Chloride 101 (98-107) mmol/L Carbon Dioxide 29 (22-32) mmol/L BUN 8 L (9-20) mg/dL Creatinine 0.90 (0.66-1.25) mg/dL Estimated GFR > 60 (>60) mL/min BUN/Creatinine Ratio 8.9 (6-22) Glucose 130 H (70-99) mg/dL Lactate 1.4 (0.7-2.1) mmol/L Calcium 9.0 (8.4-10.2) mg/dL Magnesium 1.9 (1.6-2.3) mg/dL Total Bilirubin 0.7 (0.2-1.3) mg/dL AST 35 (17-59) IU/L ALT 30 (<50) IU/L Alkaline Phosphatase 113 (38-126) U/L Total Creatine Kinase 322 H (55-170) U/L Troponin I < 0.012 < 0.012 (0.01-0.034) ng/mL NT-Pro-B Natriuret Pep < 20 (<125) pg/mL Total Protein 7.9 (6.3-8.2) g/dL Albumin 4.5 (3.5-5.0) g/dL Globulin 3.4 (1.7-4.1) g/dL Albumin/Globulin Ratio 1.3 (1.0-2.8) Lipase 375 H (23-300) U/L Imaging Data Chest x-ray: Radiologist's Impression: [place] [address] XRay Report Signed Patient: Denzel Byers MR#: [id number] : 1960 Acct:[id number] Age/Sex: 64 / M Date of Service: 06/23/24 Loc: ED Accession Number: [id number] Procedure: XR chest 1V Ordering Provider: Shyanne Gay D.O. PROCEDURE: XR CHEST 1V INDICATIONS: Chest Pain TECHNIQUE: One view of the chest was acquired. COMPARISON: None. FINDINGS: Surgical changes and devices: None. Lungs and pleura: Mild pulmonary vascular congestion. No pleural effusions or pneumothorax. Mediastinum: Mediastinal contours appear normal. Heart size is normal. Bones and chest wall: No suspicious bony lesions. Overlying soft tissues appear unremarkable. IMPRESSION: Mild congestion. No definite focal infiltrate. No pleural effusion or pneumothorax. ECG Data Interpretation: NSR HR 86 VT 182 QRS [address]-t wave change MDM Narrative Medical decision making narrative: All lab work, vital signs, nurse triage note, medication list, previous ER visits, all reviewed. Patient given amlodipine, aspirin, potassium. Potassium was 3.3, 2 sets of troponin were negative EKG shows sinus rhythm with no ST-T wave changes. Patient is chest pain-free with a heart score of 3. Differential diagnosis includes STEMI NSTEMI hypertensive emergency hypertensive urgency polysubstance abuse and noncompliance with medication. Chest x-ray showed mild congestion no definite focal infiltrate no pleural effusion or pneumothorax. Last BP 166/94. Discharge Plan Departure Patient Disposition: Home Clinical Impression: Active substance abuse, Hypertensive urgency Instructions: DI for High Blood Pressure Activity Restrictions/Additional Instructions: Return with new or worsening symptoms. Take your blood pressure medicines as previously directed. Avoid substance abuse. Follow up with PCP this week for blood pressure recheck. Prescriptions: No Action amlodipine 2.5 mg tablet 2.5 mg PO DAILY fluoxetine [Prozac] 20 mg capsule 60 mg PO DAILY gabapentin 300 mg capsule 600 mg PO DAILY methocarbamol 500 mg tablet See Rx Instructions PO Q6-8H PRN (Reason: muscle spasm) Qty: 30 0RF Rx Instructions: 1-2 tablets PO every 6-8 hours PRN; Sildenafil Citrate (Viagra) 100 mg PO PRN Qty: 0 cefdinir 300 mg capsule 300 mg PO Q12H Qty: 14 0RF Referrals: Ismael Burnette MD [Primary Care Provider] - Stand Alone Forms: Patient Portal/API/Survey
[2024-06-23] MEDS: AMLODIPINE 5 MG TABLET 10 MG PO (19:50)
[2024-06-23] MEDS: POTASSIUM CHLORIDE 20 MEQ TAB 40 MEQ PO (19:50)
[2024-06-23 20:50] LABS: Troponin I < 0.012 ng/mL (0.01-0.034)
[2024-06-23] MEDS: hydroCHLOROthiazide 25 MG TABLET PO (21:19)
== END 2024-06-23 21:27 | disposition home or self-care (01) ==
PROVIDERS: Emergency Medicine; Emergency Provider Family Medicine; Family Provider Emergency Medicine Emergency Medical Services; PCP Emergency Medicine Emergency Medical Services
DX: I16.0 Hypertensive urgency (principal); F19.10 Other psychoactive substance abuse, uncomplicated; M25.512 Pain in left shoulder; M54.2 Cervicalgia; R07.9 Chest pain, unspecified
CPT/HCPCS: 71045; 80053; 82550; 83605; 83690; 83735; 83880; 84484; 85025; 85610; 85730; 93005; 93010; 99283; 99284